=== PATIENT | male | born 1955 | race Caucasian/White ===

== ENCOUNTER 2017-04-26 10:56 | Emergency (ER) | payer OTHER ==
[~2017-04-26] VITALS: Ht 182.9 cm; Wt 127.3 kg
[2017-04-26 11:01] VITALS: BP 149/90; PULSE 98; RESP 16; TEMP 98; O2SAT 98
[2017-04-26] MEDS ORDERED: VITATAB56 PO (11:16)
[2017-04-26] MEDS ORDERED: METF1000 PO (11:16)
[2017-04-26] MEDS ORDERED: ATEN25TA PO (11:16)
[2017-04-26] MEDS ORDERED: LISI2.5T3 PO (11:16)
[2017-04-26] MEDS ORDERED: SIMV5TAB3 PO (11:16)
[2017-04-26] MEDS ORDERED: ASPI81TA23 PO (11:16)
[2017-04-26] MEDS ORDERED: INDO50CA PO (11:30)
--- NOTE | 2017-04-26 11:31 | PD ---
HPI Chief Complaint: Musculoskeletal Complaint Time Seen by Provider: 11:06 Travel History International Travel<30 days: No Contact w/Intl Traveler<30days: No Traveled to known affect area: No History of Present Illness HPI 62-year-old male here with right great toe/foot pain, swelling, redness times one day. Patient denies injury or trauma to the area. Reports similar episodes in the past. He has not been formally diagnosed with gout but symptoms are relieved in the past with NSAIDs. He denies fever or chills. He denies any recent puncture wounds or abrasions near the area. Pain is constant , throbbing worse with weightbearing and movement. He reports he is visiting from [place] and has been eating lots of shellfish in the last several days. No alleviating factors. PFSH Past Medical History Hx Anticoagulant Therapy: Yes (ASA) High Cholesterol: Yes Diabetes: Yes Patient Takes Glucophage: Yes Hypertension: Yes Tetanus Vaccination: > 5 Years Influenza Vaccination: No Past Surgical History Genitourinary Surgery: Yes (PROSTATE REMOVAL) Tonsillectomy: Yes (AND UVULA) Social History Alcohol Use: Yes (SOCIAL) Tobacco Use: Yes (2 CIGARS DAILY) Substance Use: No Allergies-Medications (Allergen,Severity, Reaction): Uncoded Allergies: ANESTHESA (Adverse Reaction, Severe, Nausea/Vomiting, 04/26/17) Reported Meds & Prescriptions Reported Meds & Active Scripts Active Ultram (Tramadol HCl) 50 Mg Tab 50 Mg PO Q6H PRN Indomethacin 50 Mg Cap 50 Mg PO TID 5 Days Take with food, milk, or antacids to decrease stomach adverse effects. Reported Vitamin D-400 (Cholecalciferol) 400 Unit Tab 400 Units PO DAILY Simvastatin 5 Mg Tab Unknown Dose PO DAILY Aspirin EC (Aspirin) 81 Mg Tabdr 81 Mg PO DAILY Metformin (Metformin HCl) 1,000 Mg Tab Unknown Dose PO DAILY With a meal Atenolol 25 Mg Tab Unknown Dose PO DIRECTED Lisinopril 2.5 Mg Tab Unknown Dose PO DAILY Review of Systems Except as stated in HPI: all other systems reviewed are Neg General / Constitutional: No: Fever Physical Exam Narrative GENERAL: Well-nourished, well-developed patient. SKIN: Focused skin assessment warm/dry. HEAD: Normocephalic. CARDIOVASCULAR: Regular rate and rhythm without murmurs, gallops, or rubs. RESPIRATORY: Breath sounds equal bilaterally. No accessory muscle use. GASTROINTESTINAL: Abdomen soft, non-tender, nondistended. MUSCULOSKELETAL: No cyanosis. Attention to the right lower extremity:Patient has notable erythema, warmth, tenderness of the first MTP joint. No fluctuance , induration, wounds the foot. No deformity. 2+ dorsal pedis pulse. Brisk cap refill. Data Data Last Documented VS Vital Signs Date Time Temp Pulse Resp B/P (MAP) Pulse Ox O2 Delivery O2 Flow Rate FiO2 04/26/17 11:01 98.0 98 16 149/90 (109) 98 Orders Orders Dexamethasone Inj (Decadron Inj) (04/26/17 11:45) Ed Discharge Order (04/26/17 11:33) [facility] Medical Decision Making Medical Screen Exam Complete: Yes Emergency Medical Condition: Yes Differential Diagnosis Gout, pseudogout, septic arthritis Narrative Course 62-year-old male here with nontraumatic right great toe pain. His physical exam is consistent with gout. I Do not suspect septic arthritis. Treatment plan and return precautions discussed with patient. He verbalizes understanding and agrees to plan Diagnosis Primary Impression: Podagra Referrals: Primary Care Physician Additional Instructions: Take medications as prescribed. Avoid the foods that we discussed. Follow-up with her primary doctor. Return to emergency department if he developed fever, chills, increase her spreading redness of the foot Scripts Tramadol (Ultram) 50 Mg Tab 50 MG PO Q6H Y for PAIN, #12 TAB 0 Refills Prov: Cortes Alcocer MD 04/26/17 Indomethacin (Indomethacin) 50 Mg Cap 50 MG PO TID for 5 Days, CAP 0 Refills Take with food, milk, or antacids to decrease stomach adverse effects. Prov: Karla La 04/26/17 Disposition: DISCHARGE HOME Condition: Stable Karla La Apr 26, 2017 11:31
[2017-04-26] MEDS ORDERED: TRAM50 PO (11:32)
[2017-04-26] MEDS ORDERED: DEXAMETHASONE SOD PHOS 4 MG/ML VIAL IM ONE (11:45)
== END 2017-04-26 11:46 | disposition home or self-care (01) ==
LOC: PHEFT 10:56
DX: M10.9 Gout, unspecified (principal); E11.9 Type 2 diabetes mellitus without complications; E78.00 Pure hypercholesterolemia, unspecified; I10 Essential (primary) hypertension; F17.290 Nicotine dependence, other tobacco product, uncomplicated; Z79.84 Long term (current) use of oral hypoglycemic drugs
CPT/HCPCS: 99284